=== PATIENT | male | born 1980 | race Caucasian/White ===

== ENCOUNTER 2017-01-20 00:15 | Emergency (ER) | payer OTHER ==
[2017-01-20 01:51] LABS: #Basophils 0.1 thou/uL (0.0-0.2); #Eosinphils 0.1 thou/uL (0.0-0.7); #Lymphocytes 1.9 thou/uL (1.20-3.40); #Monocytes 0.8 thou/uL (0.11-0.59); #Neutrophils 5.3 thou/uL (1.40-6.50); %Eosinophils 1.6 % (0.0-10.0); %Lymphocytes 22.9 % (21.0-51.0); %Monocytes 9.3 % (0.0-10.0); Hematocrit 46.9 % (42.0-52.0); Mean Platelet Volume 7.8 fL (7.4-10.4); Red Blood Cell (RBC) Count 5.22 mill/uL (4.70-6.10); White Blood Cell (WBC) Count 8.1 thou/uL (4.8-10.8)
[2017-01-20 02:06] LABS: ALT (SGPT) 21 U/L (8-55); AST (SGOT) 19 U/L (5-34); Alkaline Phosphatase 66 U/L (40-150); Anion Gap 14 mmol/L (10-20); BUN (Urea Nitrogen) 23 mg/dL (8.9-20.6); Bilirubin, Total 0.3 mg/dL (0.2-1.2); Calc. Creatinine Clearance 0 mL/min (70-130); Calcium 9.4 mg/dL (7.8-10.44); Carbon Dioxide 24 mmol/L (22-29); Chloride 101 mmol/L (98-107); Estimated GFR-MDRD 89; Globulin 3.6 g/dL (2.4-3.5); Protein, Total 7.2 g/dL (6.0-8.3)
== END 2017-01-20 02:53 | disposition home or self-care (01) ==
LOC: ERS 00:15
DX: E10.649 Type 1 diabetes mellitus with hypoglycemia without coma (principal); E78.5 Hyperlipidemia, unspecified; F41.9 Anxiety disorder, unspecified; Z79.899 Other long term (current) drug therapy
CPT/HCPCS: 36415; 36416; 80053; 85025; 99285

== ENCOUNTER 2017-04-05 08:54 | Emergency (ER) | payer OTHER ==
[2017-04-05 09:42] LABS: #Eosinphils 0.1 thou/uL (0.0-0.7); #Lymphocytes 1.1 thou/uL (1.20-3.40); #Monocytes 1.2 thou/uL (0.11-0.59); #Neutrophils 13.1 thou/uL (1.40-6.50); %Basophils 0.3 % (0.0-1.0); %Eosinophils 0.5 % (0.0-10.0); %Lymphocytes 7.4 % (21.0-51.0); %Monocytes 7.5 % (0.0-10.0); %Neutrophils 84.4 % (42.0-75.0); Hemoglobin 16.8 g/dL (14.0-18.0); Mean Corpuscular Hemoglobin 31.5 pg (27.0-31.0); Mean Corpuscular Volume 89.9 fl (80.0-94.0); Platelet Count 233 thou/uL (130-400); RBC Distribution Width 12.5 % (11.5-14.5); Red Blood Cell (RBC) Count 5.33 mill/uL (4.70-6.10); White Blood Cell (WBC) Count 15.5 thou/uL (4.8-10.8)
[2017-04-05 09:59] LABS: ALT (SGPT) 18 U/L (8-55); AST (SGOT) 16 U/L (5-34); Albumin 3.9 g/dL (3.5-5.0); Alkaline Phosphatase 57 U/L (40-150); Anion Gap 13 mmol/L (10-20); BUN (Urea Nitrogen) 15 mg/dL (8.9-20.6); Bilirubin, Total 0.3 mg/dL (0.2-1.2); Calc. Creatinine Clearance 0 mL/min (70-130); Calcium 9.4 mg/dL (7.8-10.44); Carbon Dioxide 25 mmol/L (22-29); Chloride 106 mmol/L (98-107); Estimated GFR-MDRD Greater than 90; Glucose 81 mg/dL (70-105); Potassium 4.1 mmol/L (3.5-5.1); Protein, Total 6.9 g/dL (6.0-8.3); Sodium 140 mmol/L (136-145)
== END 2017-04-05 11:33 | disposition home or self-care (01) ==
LOC: ERS 08:54
DX: E10.649 Type 1 diabetes mellitus with hypoglycemia without coma (principal); E78.5 Hyperlipidemia, unspecified; F41.9 Anxiety disorder, unspecified; F43.10 Post-traumatic stress disorder, unspecified; Z79.899 Other long term (current) drug therapy
CPT/HCPCS: 36415; 36416; 80053; 85025; 99285

== ENCOUNTER 2017-08-06 13:13 | Inpatient (IN) | payer OTHER ==
[2017-08-06 13:53] LABS: #Basophils 0.1 thou/uL (0.0-0.2); #Lymphocytes 1.2 thou/uL (1.20-3.40); #Monocytes 0.8 thou/uL (0.11-0.59); #Neutrophils 7.2 thou/uL (1.40-6.50); %Basophils 1.1 % (0.0-1.0); %Eosinophils 0.2 % (0.0-10.0); %Lymphocytes 13.1 % (21.0-51.0); %Monocytes 8.3 % (0.0-10.0); %Neutrophils 77.2 % (42.0-75.0); Hemoglobin 17.5 g/dL (14.0-18.0); Mean Corpuscular HGB CONC 33.8 g/dL (32.0-36.0); Mean Corpuscular Hemoglobin 29.9 pg (27.0-31.0); Mean Corpuscular Volume 88.5 fl (80.0-94.0); Mean Platelet Volume 10.1 fL (7.4-10.4); Platelet Count 270 thou/uL (130-400); RBC Distribution Width 12.1 % (11.5-14.5); Red Blood Cell (RBC) Count 5.87 mill/uL (4.70-6.10); White Blood Cell (WBC) Count 9.4 thou/uL (4.8-10.8)
[2017-08-06 13:56] LABS: Base Excess-Venous -17.2 mmol/L (0 (+/- 2.5)); Bicarbonate (HCO3v) 8.2 mmol/L (1.0-85.0); CO2 Tension (PvCO2) 20.9 mmHg (41.0-51.0); Calcium, Ionized 1.17 mmol/L (1.12-1.32); Hemoglobin - Calc 18.7 g/dL (12.0-18.0); O2 Tension (PvO2) 81.6 mmHg (35.0-45.0); Potassium 4.8 mmol/L (3.4-4.7); T. Carbon Dioxide 8.9 mmol/L (1.0-85.0); pH (Venous) 7.203 (7.35-7.45); vO2 Saturation-calc 93.5 % (94-98)
[2017-08-06 14:06] LABS: ALT (SGPT) 29 U/L (8-55); AST (SGOT) 18 U/L (5-34); Albumin 4.6 g/dL (3.5-5.0); Alkaline Phosphatase 78 U/L (40-150); BUN (Urea Nitrogen) 19 mg/dL (8.9-20.6); Bilirubin, Total 0.7 mg/dL (0.2-1.2); Calc. Creatinine Clearance 0 mL/min (70-130); Calcium 9.7 mg/dL (7.8-10.44); Chloride 100 mmol/L (98-107); Estimated GFR-MDRD 56; Globulin 3.7 g/dL (2.4-3.5); Glucose 295 mg/dL (70-105); Lipase 6 U/L (8-78); Protein, Total 8.3 g/dL (6.0-8.3); Sodium 131 mmol/L (136-145)
[2017-08-06 14:07] LABS: CKMB 2.8 ng/mL (0-6.6); Carbon Dioxide Less than 8 mmol/L (22-29); Troponin I Less than 0.010 ng/mL (< 0.028)
--- NOTE | 2017-08-06 14:23 | RAD ---
PORTABLE CHEST 1 VIEW: Date: 08/06/17 Time: 1405 hours HISTORY: Vomiting. Tachycardia. Chest pain. Shortness of breath. FINDINGS: Comparison made with exam of 03/03/14. The heart size is normal. The lungs are expanded without focal areas of consolidation, pneumothorax, or pleural effusions. IMPRESSION: No radiographic evidence of acute cardiopulmonary process. POS: OFF
[2017-08-06] MEDS ORDERED: Acetaminophen 500 MG TAB ONE (14:48)
[2017-08-06] MEDS ORDERED: Insulin Regular 300 UNITS/3 ML VIAL ONE (14:55)
[2017-08-06 14:56] LABS: Bilirubin Negative (Negative); Blood, Urine Small (Negative); Glucose, Urine (Dipstick) 500 mg/dL (Negative); Leukocyte Negative (Negative); Nitrite Negative (Negative); Protein, Urine (Dipstick) 30 mg/dL (Neg-Trace); Urobilinogen 0.2 mg/dL (0.2-1.0); pH, Urine 5.5 (5.0-9.0)
[2017-08-06 14:57] LABS: Clarity Hazy (Clear); Specific Gravity, Urine 1.028 (1.002-1.036)
[2017-08-06 15:01] LABS: RBC/HPF 0-3 HPF (0-3); WBC/HPF None Seen HPF (0-3)
[2017-08-06 15:02] LABS: Bacteria/HPF Rare-Few HPF (None Seen); Squamous Epithelial None Seen HPF (0-3)
[2017-08-06 16:07] VITALS: BMI 29.6
[2017-08-06] MEDS ORDERED: Sodium Chloride 0.9% 1,000 ML IV PRN ×4 (16:36)
[2017-08-06] MEDS ORDERED: CCU Electrolyte Replacement 1 EACH IVPB ONE (16:36)
[2017-08-06] MEDS ORDERED: NS 0.9% w/ 20 MEQ KCL 1,000 ML IV PRN ×2 (16:36)
[2017-08-06] MEDS ORDERED: Magnesium 2 GM/NS 0.9% 100 ML 2 GM in Premix Bag 1 BAG IVPB PRN (17:05)
[2017-08-06] MEDS ORDERED: Potassium Chloride 40 MEQ in Sodium Chloride 0.9% 250 ML 250 ML IVPB PRN (17:05)
[2017-08-06] MEDS ORDERED: Potassium Chloride 20 MEQ TAB PO PRN (17:05)
[2017-08-06] MEDS ORDERED: Magnesium Oxide 400 MG TAB PO PRN ×2 (17:05)
[2017-08-06] MEDS ORDERED: Potassium Phosphate 15 MMOL in Sodium Chloride 0.9% 250 ML 250 ML IV PRN (17:05)
[2017-08-06] MEDS ORDERED: Potassium Chloride 40 MEQ in Premix Bag 1 BAG IVPB PRN (17:05)
[2017-08-06] MEDS ORDERED: Potassium Phosphate 9 MMOL in Sodium Chloride 0.9% 100 ML IVPB PRN (17:05)
[2017-08-06] MEDS ORDERED: CCU ELECTROLYTE REPLACEMENT PROTOCOL FS PRN (17:05)
[2017-08-06] MEDS ORDERED: Potassium Phosphate 12 MMOL in Sodium Chloride 0.9% 250 ML 250 ML IV PRN (17:05)
[2017-08-06 17:21] LABS: Anion Gap 18 mmol/L (10-20); BUN (Urea Nitrogen) 16 mg/dL (8.9-20.6); Calc. Creatinine Clearance 125 mL/min (70-130); Calcium 9.1 mg/dL (7.8-10.44); Carbon Dioxide 15 mmol/L (22-29); Chloride 106 mmol/L (98-107); Estimated GFR-MDRD 66; Glucose 159 mg/dL (70-105); Potassium 4.8 mmol/L (3.5-5.1); Sodium 134 mmol/L (136-145)
[2017-08-06 18:48] LABS: Anion Gap 18 mmol/L (10-20); BUN (Urea Nitrogen) 13 mg/dL (8.9-20.6); Calc. Creatinine Clearance 122 mL/min (70-130); Calcium 9.1 mg/dL (7.8-10.44); Carbon Dioxide 18 mmol/L (22-29); Chloride 104 mmol/L (98-107); Estimated GFR-MDRD 65; Glucose 187 mg/dL (70-105); Potassium 5.3 mmol/L (3.5-5.1); Sodium 135 mmol/L (136-145)
[2017-08-06] MEDS: Dextrose 5 %-0.45 % NaCl 1,000 ML IV PRN (19:35)
--- NOTE | 2017-08-06 20:02 | HP ---
CHIEF COMPLAINT: Vomiting. HISTORY OF PRESENT ILLNESS: This patient is a 37-year-old male with a history of insulin-dependent diabetes on an insulin pump. The patient states that he quit taking carbohydrates about 1 month ago and is limited to about 15 grams of carbohydrates per day at this point. He reports his blood sugars have been much lower and he is using less insulin in response to that. The patient got outside yesterday, worked hard in the sun and sweating profusely. He said he felt like he was keeping pace with his fluids. About 6:00 this morning, the patient started having some nausea and vomiting. He states the emesis was completely clear. He had no associated abdominal pain or fevers or chills. He did have some shortness of breath and felt like his heart was racing with any exertion. He states that he has not really had anything to eat, unable to drink since this morning. He states that he also developed a headache and felt like it was the beginning of the migraine. He presented to an urgent care, where he was found to have diabetic ketoacidosis with a pH of 7.2 and anion gap of 23. Subsequently, the patient received 2 liters of fluids and was transferred here to the hospital. Reports presently his only symptom is headache and that seems to be improving. REVIEW OF SYSTEMS: Ten point review of systems was negative other than those things mentioned in the history of present illness and were all completely normal until yesterday. PAST MEDICAL HISTORY: Notable for the diabetes, requiring insulin pump. 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 PAST SURGICAL HISTORY: Resection of a lymph node in the left groin which he states was infected. FAMILY HISTORY: Father is healthy. His mother of colon cancer. SOCIAL HISTORY: Patient denies tobacco or drugs. He states he may drink one beer per month. He is and has children. The patient reports that his surrogate decision maker would be his . PRIMARY CARE PROVIDER: Abhay Hussein D.O. CODE STATUS: The patient is FULL CODE. PHYSICAL EXAMINATION: VITAL SIGNS: Temperature is 97.8, pulse 97, respirations 15, O2 sat 99% on room air, BP is 122/80. GENERAL APPEARANCE: Age appropriate male, in no distress. He is awake, alert, oriented, pleasant and cooperative. HEENT: PERRL. No OP lesions. His oral mucosa appears generally moist. NECK: Supple and symmetric without lymphadenopathy. CARDIOVASCULAR: Regular rate and rhythm without murmurs, gallops or rubs. LUNGS: Clear to auscultation bilaterally with no wheezes or rales. Good chest wall expansion. ABDOMEN: Soft, nontender, nondistended, positive bowel sounds. No masses, no organomegaly. EXTREMITIES: Warm and dry with no edema. LABORATORY DATA: White count is 9.4, hemoglobin 17.5, platelets 270. Chemistry : Sodium is 131, potassium 5.0, chloride 100, CO2 is less than 8, BUN 19, creatinine 1.41, glucose 295, calcium 9.7, AST 18, ALT 29, alkaline phosphatase 78, CK-MB 2, troponin less than 0.01. Albumin is 4.6. Lipase is 6. Subsequent blood sugars 303 and 221. Urinalysis shows trace protein with 500 glucose, positive ketones. Beta hydroxybutyrate is 9.36. Venous blood gas pH 7.20, pCO2 of 21, pO2 of 82. Chest x-ray negative. ASSESSMENT AND PLAN: 1. Diabetic ketoacidosis. The patient is admitted to the [facility]. He will be started on the diabetic ketoacidosis protocol with hydration and an insulin drip. I suspect this was triggered by the patient getting overheated and somewhat dehydrated yesterday. The patient started with nausea and vomiting this morning which is exacerbated it. Symptomatically appears to be somewhat better. I will continue to monitor his anion gap. The patient does not appear to have any underlying infection or other triggers. 2. History of anxiety and posttraumatic stress disorder. We will continue with his usual home medications. JOSEPH
[2017-08-06] MEDS: busPIRone HCl 10 MG TAB PO SCH (21:00)
[2017-08-06] MEDS: Famotidine 20 MG TAB PO SCH (21:01)
[2017-08-06] MEDS: traZODone HCl 150 MG TAB PO SCH (21:01)
[2017-08-06 21:28] LABS: Anion Gap 17 mmol/L (10-20); BUN (Urea Nitrogen) 13 mg/dL (8.9-20.6); Calc. Creatinine Clearance 114 mL/min (70-130); Calcium 8.7 mg/dL (7.8-10.44); Carbon Dioxide 18 mmol/L (22-29); Chloride 102 mmol/L (98-107); Estimated GFR-MDRD 60; Glucose 352 mg/dL (70-105); Potassium 4.2 mmol/L (3.5-5.1); Sodium 133 mmol/L (136-145)
[2017-08-07] MEDS: Dextrose 5 %-0.45 % NaCl 1,000 ML IV PRN (00:01)
[2017-08-07] MEDS: traMADol HCl 50 MG TAB PO SCH ×6 (00:27→21:58)
[2017-08-07] MEDS: D5 1/2 NS w/20 mEq KCL 1,000 ML IV PRN ×2 (00:47→05:11)
[2017-08-07 01:03] LABS: Anion Gap 13 mmol/L (10-20); BUN (Urea Nitrogen) 13 mg/dL (8.9-20.6); Calc. Creatinine Clearance 129 mL/min (70-130); Calcium 8.9 mg/dL (7.8-10.44); Carbon Dioxide 17 mmol/L (22-29); Chloride 107 mmol/L (98-107); Estimated GFR-MDRD 69; Glucose 238 mg/dL (70-105); Potassium 3.6 mmol/L (3.5-5.1); Sodium 133 mmol/L (136-145)
[2017-08-07 04:42] LABS: Anion Gap 8 mmol/L (10-20); BUN (Urea Nitrogen) 10 mg/dL (8.9-20.6); Calc. Creatinine Clearance 159 mL/min (70-130); Calcium 8.6 mg/dL (7.8-10.44); Carbon Dioxide 20 mmol/L (22-29); Chloride 110 mmol/L (98-107); Estimated GFR-MDRD 88; Glucose 142 mg/dL (70-105); Potassium 3.4 mmol/L (3.5-5.1); Sodium 135 mmol/L (136-145)
[2017-08-07] MEDS: Acetaminophen 325 MG TAB PO PRN (06:49)
[2017-08-07] MEDS ORDERED: Acetaminophen 500 MG TAB PO PRN (08:09)
--- NOTE | 2017-08-07 08:12 | PDOC.PN ---
- Subjective Encounter Start Date: 08/07/17 Encounter Start Time: 08:11 Doing well other than a frontal headache. No N/V or abdominal pain. - Objective Resuscitation Status: Resuscitation Status FULL:Full Resuscitation Vital Signs & Weight: Vital Signs (12 hours) Temp Pulse Resp BP Pulse Ox 08/07/17 07:47 97.8 F 71 18 100 08/07/17 07:00 97.8 F 71 18 109/64 98 08/07/17 04:00 98.5 F 74 16 99/63 97 08/07/17 00:00 98.7 F 84 16 113/72 97 Weight Weight 236 lb 14.4 oz I&O: 08/06/17 08/07/17 08/08/17 06:59 06:59 06:59 Intake Total 3870 253 Output Total 3245 Balance 625 253 Result Diagrams: 08/06/17 13:26 08/07/17 03:57 Additional Labs: Accuchecks 08/07/17 08/07/17 08/07/17 07:04 06:10 05:12 POC Glucose 156 H 105 98 08/07/17 08/07/17 08/07/17 04:14 03:12 02:15 POC Glucose 123 H 163 H 172 H 08/07/17 08/07/17 08/06/17 01:15 00:05 23:07 POC Glucose 204 H 251 H 341 H 08/06/17 08/06/17 08/06/17 22:18 21:06 20:10 POC Glucose 374 H 320 H 335 H 08/06/17 08/06/17 08/06/17 19:05 18:02 15:54 POC Glucose 267 H 161 H 168 H 08/06/17 15:04 POC Glucose 221 H Phys Exam - Physical Examination Constitutional: NAD Neck: no JVD Respiratory: no wheezing, no rales, no rhonchi, clear to auscultation bilateral Cardiovascular: RRR, no significant murmur, no rub Gastrointestinal: soft, non-tender, no distention Musculoskeletal: no edema Neurological: non-focal Psychiatric: normal affect, A&O x 3 Dx/Plan (1) DKA (diabetic ketoacidoses) Code(s): E13.10 - OTH DIABETES MELLITUS WITH KETOACIDOSIS WITHOUT COMA Status : Acute Qualifiers: Diabetes mellitus type: due to underlying condition Diabetes mellitus joint terminal attack controller insulin use: with [facility] use Diabetes mellitus complication detail: without coma Qualified Code(s): E08.10 - Diabetes mellitus due to underlying condition with ketoacidosis without coma; Z79.4 - correction (current) use of insulin; Z79.4 - correction (current) use of insulin; 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 Has required dextrose in IVF in order to give the insulin. Has been on insulin gtt and is at 3 unites per hour now. AG has normalized at 8 this morning. Will liberalize his diet and try to get him back on his pump today. Will watch one more day to ensure he does not backtrack. Continue IVF. (2) Headache Code(s): R51 - HEADACHE Status: Acute Qualifiers: Headache type: tension-type Headache chronicity pattern: acute headache Intractability: not intractable Qualified Code(s): G44.209 - Tension-type headache, unspecified, not intractable Plan: Will give IB, acetaminophe prn. (3) Hypokalemia Code(s): E87.6 - HYPOKALEMIA Status: Acute Plan: Typical of DKA. Replete per protocol. (4) Nausea & vomiting Code(s): R11.2 - NAUSEA WITH VOMITING, UNSPECIFIED Status: Resolved - Plan * Ambulate today as tolerated. Keep one more day to transition back to his outpatient regimen of insulin.
[2017-08-07] MEDS ORDERED: Ibuprofen 200 MG TAB PO SCH (08:15)
[2017-08-07] MEDS: Enoxaparin Sodium 40 MG/0.4 ML SYRINGE SC SCH (08:51)
[2017-08-07] MEDS: busPIRone HCl 10 MG TAB PO SCH ×2 (08:52→20:38)
[2017-08-07] MEDS: Famotidine 20 MG TAB PO SCH ×2 (08:52→20:38)
[2017-08-07] MEDS: traZODone HCl 150 MG TAB PO SCH ×2 (08:53→20:38)
[2017-08-08] MEDS: traMADol HCl 50 MG TAB PO SCH ×2 (04:04→09:59)
[2017-08-08 05:44] LABS: Anion Gap 8 mmol/L (10-20); BUN (Urea Nitrogen) 7 mg/dL (8.9-20.6); Calc. Creatinine Clearance 160 mL/min (70-130); Calcium 8.8 mg/dL (7.8-10.44); Carbon Dioxide 25 mmol/L (22-29); Chloride 106 mmol/L (98-107); Estimated GFR-MDRD 89; Glucose 235 mg/dL (70-105); Potassium 3.6 mmol/L (3.5-5.1); Sodium 135 mmol/L (136-145)
[2017-08-08 07:57] VITALS: BP 117/81; TEMP 98
[2017-08-08] MEDS: busPIRone HCl 10 MG TAB PO SCH (08:37)
[2017-08-08] MEDS: traZODone HCl 150 MG TAB PO SCH (08:38)
[2017-08-08] MEDS: Famotidine 20 MG TAB PO SCH (08:38)
[2017-08-08] MEDS: Enoxaparin Sodium 40 MG/0.4 ML SYRINGE SC SCH (08:39)
[2017-08-08] MEDS: Acetaminophen 325 MG TAB PO PRN (08:42)
--- NOTE | 2017-08-08 13:50 | DIS ---
DATE OF DISCHARGE: 08/08/2017 DISCHARGE DISPOSITION: Home. FOLLOWUP: With primary care physician, Dr. Abhay Hussein in 1 week. DISCHARGE MEDICATIONS: The patient will continue insulin pump along with other home medications. ALLERGIES: The patient is allergic to CODEINE. The patient was seen on the day of discharge. Denies any new complaints. No chest pain, shortness o f breath or palpitations. BRIEF HOSPITAL COURSE: The patient is a 37-year-old male with diabetes mellitus type 1, on insulin p ump, presented to the hospital with nausea or vomiting. His workup was consistent with diabetic keto acidosis. His beta hydroxybutyrate was 9.36 with a bicarbonate of less than 8 and creatinine of 1.41 . Please refer to the history and physical for further details. The patient was admitted to the hospital with a diagnosis of diabetic ketoacidosis. He was started o n insulin drip along with IV fluids per DKA protocol. Later on, he was transferred to the regular [facility]. His insulin pump has been restarted. His creatinine on the day of discharge 0.95 with bicarbon ate of 25. Plan of care was discussed with the patient in detail. He stated understanding. FINAL DIAGNOSES: 1. Diabetic ketoacidosis. 2. Nausea and vomiting secondary to diabetic ketoacidosis. 3. Hypokalemia, replaced. 4. Acute kidney injury, resolved. 5. Hyponatremia, resolved. 6. Anxiety. 7. Posttraumatic stress disorder. Plan of care was discussed with the patient in detail. He stated understanding.
--- NOTE | 2017-08-08 17:02 | CON ---
DATE OF CONSULTATION: 08/07/2017 HISTORY OF PRESENT ILLNESS: Mr. Welch is a very pleasant type 1 diabetic. He manages his insuli n quite well and he has not had frequent hospitalizations at this hospital. He has been trying to lose weight and cut back on carbohydrates and also worked out hard in the sun t he day prior to admission. He retrospectively says he do not think he drank enough liquid. He start ed peaking and could not keep any food down early this morning. He had some abdominal cramping, but most prominently felt like his heart was racing. He presented to the hospital with diabetic ketoacid osis and was started on an insulin drip, hydrated and is now stabilizing saying he feels almost back to normal other than a mild headache. PAST MEDICAL HISTORY: 1. Remarkable for diabetes. 2. History of lymph node resection from his groin that was inflammatory. SOCIAL HISTORY: He is a nonsmoker, nondrinker. He is . He has, I believe, 2 children. FAMILY HISTORY: Cancer. No history of lung disease in early age. REVIEW OF SYSTEMS: Ten points otherwise negative. PHYSICAL EXAMINATION: VITAL SIGNS: Afebrile, heart rate 84, respiratory rate 16, oximetry 96, blood pressure 115/65. HEENT: Pupils are equal. Sclerae are anicteric. NECK: Supple. LUNGS: Clear. HEART: Regular rhythm. S1 and S2 are normal. ABDOMEN: Soft and nontender. EXTREMITIES: Without clubbing, cyanosis or edema. LABORATORY DATA: Hematocrit on presentation was 52 yesterday after lunch. White count was 9.4, bica rbonate was 15. His glucose was 303. Venous blood gas was done. He is mildly hyperchloremic with s ome volume .
--- NOTE | 2017-08-10 12:16 | CON ---
PULMONARY CONSULT His pulmonary consult did not completely record. David Welch is mildly hyperchloremic with his volume resuscitation. His anion gap is closed. Microbiology is reviewed and there are no positive cultures. IMPRESSION: Diabetic ketoacidosis, resolved. PLAN: Transfer to floor. Hopefully home in the morning. He is stable to move out of [facility].
== END 2017-08-08 11:32 | disposition home or self-care (01) | DRG 638 ==
LOC: SCSER 13:13 → IMCU/EMU 14:46 → T4-A 08-07 14:24
PROVIDERS: ADMIT Internal Medicine Infectious Disease; ATTEND Internal Medicine Infectious Disease
DX: E11.10 Type 2 diabetes mellitus with ketoacidosis without coma (principal); E87.1 Hypo-osmolality and hyponatremia; F43.10 Post-traumatic stress disorder, unspecified; F41.9 Anxiety disorder, unspecified; E87.6 Hypokalemia; Z88.5 Allergy status to narcotic agent
CPT/HCPCS: 36415; 36416; 71045; 80048; 80053; 81003; 81015; 82010; 82330; 82553; 82803; 83690; 84484; 85025; 93005; 96360; A4216; J1650; J1815; J7050

== ENCOUNTER 2017-08-27 16:33 | Emergency (ER) | payer OTHER ==
[2017-08-27 17:05] LABS: #Basophils 0.1 thou/uL (0.0-0.2); #Eosinphils 0.1 thou/uL (0.0-0.7); #Lymphocytes 1.8 thou/uL (1.20-3.40); #Monocytes 1.1 thou/uL (0.11-0.59); #Neutrophils 6.6 thou/uL (1.40-6.50); %Basophils 0.8 % (0.0-1.0); %Eosinophils 1.3 % (0.0-10.0); %Lymphocytes 18.2 % (21.0-51.0); %Monocytes 10.9 % (0.0-10.0); %Neutrophils 68.7 % (42.0-75.0); Hemoglobin 16.5 g/dL (14.0-18.0); Mean Corpuscular HGB CONC 34.5 g/dL (32.0-36.0); Mean Corpuscular Volume 89.9 fL (78.0-98.0); Mean Platelet Volume 7.5 fL (7.4-10.4); Platelet Count 253 thou/uL (130-400); RBC Distribution Width 12.8 % (11.5-14.5); Red Blood Cell (RBC) Count 5.34 mill/uL (4.70-6.10); White Blood Cell (WBC) Count 9.6 thou/uL (4.8-10.8)
[2017-08-27 17:31] LABS: Anion Gap 15 mmol/L (10-20); BUN (Urea Nitrogen) 18 mg/dL (8.9-20.6); Calc. Creatinine Clearance 0 mL/min (70-130); Calcium 10.3 mg/dL (7.8-10.44); Carbon Dioxide 28 mmol/L (22-29); Chloride 102 mmol/L (98-107); Estimated GFR-MDRD 86; Glucose 81 mg/dL (70-105); Potassium 3.9 mmol/L (3.5-5.1); Sodium 141 mmol/L (136-145)
== END 2017-08-27 19:12 | disposition home or self-care (01) ==
LOC: ERS 16:33
DX: E10.649 Type 1 diabetes mellitus with hypoglycemia without coma (principal); E78.5 Hyperlipidemia, unspecified; F41.9 Anxiety disorder, unspecified; F43.10 Post-traumatic stress disorder, unspecified; Z79.899 Other long term (current) drug therapy
CPT/HCPCS: 36415; 36416; 80048; 85025; 99285